=== PATIENT | female | born 1995 | race African-American/Black ===

== ENCOUNTER 2016-06-05 09:20 | Inpatient (IN) | payer MEDICAID, OTHER ==
[~2016-06-05] VITALS: Ht 152.4 cm; Wt 75.1 kg
[2016-06-05 09:22] VITALS: BP 126/70; PULSE 113; RESP 16; TEMP 98.2; O2SAT 97
[2016-06-05] MEDS ORDERED: ASPI325T PO (09:42)
--- NOTE | 2016-06-05 09:54 | PD ---
HPI Chief Complaint: Related Problem Time Seen by Provider: 09:51 Travel History International Travel<30 days: No Contact w/Intl Traveler<30days: No Traveled to known affect area: No History of Present Illness HPI 21-year-old female presents to the emergency department for violation of abdominal cramping and vaginal bleeding during . Patient states her last menstrual cycle was April 21, 2016. She had a positive done yesterday at her primary care physician's office. Patient reports vaginal spotting since Wednesday, but states the cramping and worsening vaginal bleeding started last night. She states that she soaked through a pad onto her bed last night. She has not quite soaked through a pad since waking this morning. She states this is her first . She has no chronic medical problems and takes no prescribed medications. Patient denies any abnormal vaginal discharge or risk of STDs reporting one sexual partner in 2 years. PFSH Past Medical History Medical History: Denies Significant Hx Tetanus Vaccination: < 5 Years Influenza Vaccination: No ?: LMP: 04/21/16 : 1 Para: 0 Miscarriage: 0 : 0 Past Surgical History Surgical History: No Previous Surgery Social History Alcohol Use: Yes (SOCIALLY - NOT FOR PAST FEW WEEKS) Tobacco Use: No Substance Use: No Allergies-Medications (Allergen,Severity, Reaction): Coded Allergies: No Known Allergies (Unverified , 06/05/16) Reported Meds & Prescriptions Reported Meds & Active Scripts Active Reported Aspirin 325 Mg Tab 325 Mg PO DAILY PRN Review of Systems Except as stated in HPI: all other systems reviewed are Neg Physical Exam Narrative GENERAL: Well-developed well-nourished female patient, afebrile. SKIN: Warm and dry. HEAD: Normocephalic. Atraumatic. EYES: No scleral icterus. No injection or drainage. NECK: Supple, trachea midline. No JVD or lymphadenopathy. CARDIOVASCULAR: Regular rate and rhythm without murmurs, gallops, or rubs. RESPIRATORY: Breath sounds equal bilaterally. No accessory muscle use. Lungs sounds clear to auscultation. GASTROINTESTINAL: Abdomen soft and nondistended. Patient has diffuse tenderness to palpation. MUSCULOSKELETAL: No cyanosis, or edema. BACK: Nontender without obvious deformity. No CVA tenderness. GENITOURINARY: Normal external genitalia without lesions or erythema. Vaginal vault has blood clots and blood with products of conception noted in the vaginal vault. Cervical os slightly open with blood noted coming from the cervical os. No cervical motion tenderness. Uterus nontender and nonenlarged. Bilateral adnexa nontender without masses. Pelvic exam was done with DORIS Ortiz, at bedside. Data Data Last Documented VS Vital Signs Date Time Temp Pulse Resp B/P Pulse Ox O2 Delivery O2 Flow Rate FiO2 06/05/16 12:15 110 16 127/67 99 Room Air 06/05/16 09:22 98.2 Orders Beta Hcg (Quant/Titer) (06/05/16 09:50) Complete Blood Count With Diff (06/05/16 09:50) Basic Metabolic Panel (Bmp) (06/05/16 09:50) Complete Rh (06/05/16 09:50) Urinalysis - C+S If Indicated (06/05/16 09:50) Ed Urine Pregnancytest Poc (06/05/16 09:50) Acetaminophen (Tylenol) (06/05/16 10:00) Sodium Chlor 0.9% 1000 Ml Inj (Ns 1000 M (06/05/16 10:00) Ed Poc Ultrasound (06/05/16 10:18) Urine Culture (06/05/16 10:15) Gc And Chlamydia Pcr (06/05/16 11:09) Wet Prep Profile (06/05/16 11:09) Blood Culture (06/05/16 11:11) Lactic Acid Sepsis Protocol (06/05/16 11:11) Pathology Req For Addl Service (06/05/16 12:00) Morphine Inj (Morphine Inj) (06/05/16 12:15) Ondansetron Inj (Zofran Inj) (06/05/16 12:15) Us Pelvis (Ques Pr/Ect)W Trans (06/05/16 ) Gentamicin Inj (Gentamicin Inj) (06/05/16 13:00) Clindamycin Inj (Cleocin Inj) (06/05/16 13:00) (Hub Use Only)Inp Phy Cons/Ref (06/05/16 ) Admit Order (Ed Use Only) (06/05/16 13:37) Labs Laboratory Tests Test 06/05/16 06/05/16 06/05/16 10:15 11:22 12:15 White Blood Count 34.0 TH/MM3 Red Blood Count 4.26 MIL/MM3 Hemoglobin 10.6 GM/DL Hematocrit 33.8 % Mean Corpuscular Volume 79.3 FL Mean Corpuscular Hemoglobin 24.8 PG Mean Corpuscular Hemoglobin 31.3 % Concent Red Cell Distribution Width 16.4 % Platelet Count 420 TH/MM3 Mean Platelet Volume 7.8 FL Neutrophils (%) (Auto) 94.8 % Lymphocytes (%) (Auto) 3.1 % Monocytes (%) (Auto) 1.9 % Eosinophils (%) (Auto) 0.0 % Basophils (%) (Auto) 0.2 % Neutrophils # (Auto) 32.2 TH/MM3 Lymphocytes # (Auto) 1.1 TH/MM3 Monocytes # (Auto) 0.6 TH/MM3 Eosinophils # (Auto) 0.0 TH/MM3 Basophils # (Auto) 0.1 TH/MM3 CBC Comment AUTO DIFF Differential Total Cells 100 Counted Neutrophils % (Manual) 94 % Band Neutrophils % 2 % Lymphocytes % 1 % Monocytes % 3 % Neutrophils # (Manual) 32.6 TH/MM3 Differential Comment FINAL DIFF MANUAL Toxic Vacuolation PRESENT Platelet Estimate HIGH Platelet Morphology Comment NORMAL Urine Color RED Urine Turbidity HAZY Urine pH 5.5 Urine Specific [place] 1.027 Urine Protein 100 mg/dL Urine Glucose (UA) NEG mg/dL Urine Ketones 10 mg/dL Urine Occult Blood LARGE Urine Nitrite NEG Urine Bilirubin NEG Urine Urobilinogen 2.0 MG/DL Urine Leukocyte Esterase MOD Urine RBC /hpf Urine WBC 68 /hpf Urine Squamous Epithelial 16 /hpf Cells Urine Bacteria MANY /hpf Urine Mucus MANY /lpf Microscopic Urinalysis Comment CULTURE INDICATED Sodium Level 138 MEQ/L Potassium Level 3.5 MEQ/L Chloride Level 107 MEQ/L Carbon Dioxide Level 21.7 MEQ/L Anion Gap 9 MEQ/L Blood Urea Nitrogen 6 MG/DL Creatinine 0.72 MG/DL Estimat Glomerular Filtration 125 ML/MIN Rate Random Glucose 91 MG/DL Calcium Level 8.9 MG/DL Human Chorionic Gonadotropin, 1166 MIU/ML Quant Blood Type O POSITIVE Rho(D) Type POSITIVE Lactic Acid Level 1.6 mmol/L Clue Cells (Wet Prep) NONE SEEN Vaginal Trichomonas (Wet Prep) NONE SEEN Vaginal Yeast (Wet Prep) NONE SEEN MDM Medical Decision Making Medical Screen Exam Complete: Yes Emergency Medical Condition: Yes Medical Record Reviewed: Yes Interpretation(s) US - CONCLUSION: Endometrial thickening. No evidence of intrauterine or gestational sac and no evidence of ectopic mass. Differential Diagnosis Threatened versus intrauterine versus ectopic Narrative Course 21-year-old female presents to the emergency department for evaluation of abdominal cramping and vaginal bleeding during . UA urine test are ordered and pending. CBC, BMP, beta hCG, complete Rh are ordered and pending. Ultrasound of the pelvis to rule out ectopic is ordered and pending. UA shows large occult blood, moderate leukocyte esterase, 60 WBCs, many bacteria. Urine test is positive. CBC shows leukocytosis of 34.0, he was in 10.6, hematocrit 33.8, neutrophilia 94.8. BMP shows no acute abnormalities. Beta hCG is 1166. Blood type is O+. Blood cultures 2 lactic acid are ordered and pending. Lactic acid is 1.6. Wet prep profile is negative for clue cells, Trichomonas, yeast. 1159 - US tech is in room, completing ordered US. US shows endometrial thickening. No evidence of intrauterine or gestational sac and no evidence of ectopic mass. [phone] - Dr. Naranjo is paged. According to community living instructor, we are unable to talk to her and OB hospitalist should be called. I spoke with Dr. Kenny with OB hospitalist who saw patient. He agrees that patient most likely has peptic and would like the patient to be started on clindamycin and gentamicin. He states that patient possibly go for a D&C after receiving antibiotics for 48 hours. He would like the patient to be admitted to the hospitalist and for him to be consulted. [phone] - [facility] is paged. [phone] - I spoke to Dr. Rodriguez with [facility] who would like patient to be admitted to Dr. Kenny. I called Dr. Kenny back who agreed to accept admission. Sepsis Criteria SIRS Criteria (2 or more): Heart rate over 90, WBC > 66726, < 4000 or > 10% bands Sepsis Criteria (SIRS+source): Infect source susp/known Diagnosis Primary Impression: Spontaneous with sepsis Additional Impression: Urinary tract infection Qualified Code: N30.01 - Acute cystitis with hematuria Admitting Information Admitting Physician Requests: Admit Elisa Gonzalez CHEN Jun 05, 2016 09:54
[2016-06-05] MEDS ORDERED: ACETAMINOPHEN 325 MG TAB PO ONE (10:00)
[2016-06-05] MEDS ORDERED: SODIUM CHLOR 0.9% 1000 ML INJ 1,000 ML IV ONE (10:00)
--- NOTE | 2016-06-05 10:23 | PD ---
Physical Exam Date Seen by Provider: Jun 05, 2016 Narrative Patient presents with related problems Data Data Last Documented VS Vital Signs Date Time Temp Pulse Resp B/P Pulse Ox O2 Delivery O2 Flow Rate FiO2 06/05/16 10:25 112 16 123/70 99 Room Air 06/05/16 09:22 98.2 Orders Beta Hcg (Quant/Titer) (06/05/16 09:50) Complete Blood Count With Diff (06/05/16 09:50) Basic Metabolic Panel (Bmp) (06/05/16 09:50) Complete Rh (06/05/16 09:50) Us Pelvis (Ques Preg/Ectopic) (06/05/16 ) Urinalysis - C+S If Indicated (06/05/16 09:50) Ed Urine Pregnancytest Poc (06/05/16 09:50) Acetaminophen (Tylenol) (06/05/16 10:00) Sodium Chlor 0.9% 1000 Ml Inj (Ns 1000 M (06/05/16 10:00) Ed Poc Ultrasound (06/05/16 10:18) Urine Culture (06/05/16 10:15) Labs Laboratory Tests Test 06/05/16 10:15 White Blood Count 34.0 TH/MM3 Red Blood Count 4.26 MIL/MM3 Hemoglobin 10.6 GM/DL Hematocrit 33.8 % Mean Corpuscular Volume 79.3 FL Mean Corpuscular Hemoglobin 24.8 PG Mean Corpuscular Hemoglobin 31.3 % Concent Red Cell Distribution Width 16.4 % Platelet Count 420 TH/MM3 Mean Platelet Volume 7.8 FL Neutrophils (%) (Auto) 94.8 % Lymphocytes (%) (Auto) 3.1 % Monocytes (%) (Auto) 1.9 % Eosinophils (%) (Auto) 0.0 % Basophils (%) (Auto) 0.2 % Neutrophils # (Auto) 32.2 TH/MM3 Lymphocytes # (Auto) 1.1 TH/MM3 Monocytes # (Auto) 0.6 TH/MM3 Eosinophils # (Auto) 0.0 TH/MM3 Basophils # (Auto) 0.1 TH/MM3 CBC Comment AUTO DIFF Urine Color RED Urine Turbidity HAZY Urine pH 5.5 Urine Specific [place] 1.027 Urine Protein 100 mg/dL Urine Glucose (UA) NEG mg/dL Urine Ketones 10 mg/dL Urine Occult Blood LARGE Urine Nitrite NEG Urine Bilirubin NEG Urine Urobilinogen 2.0 MG/DL Urine Leukocyte Esterase MOD Urine RBC /hpf Urine WBC 68 /hpf Urine Squamous Epithelial 16 /hpf Cells Urine Bacteria MANY /hpf Urine Mucus MANY /lpf Microscopic Urinalysis Comment CULTURE INDICATED Blood Type O POSITIVE Rho(D) Type POSITIVE MDM Supervised Visit with JEFF: Yes Narrative Course I, Dr. Borden, have reviewed the advance practice practitioner's documentation and am in agreement, met with the patient face to face, made the diagnosis, and the medical decision making was done by me. *My assessment and Findings: I did a quick look ultrasound but was not able to see any signs of a . Rosario Borden MD Jun 05, 2016 10:22
[2016-06-05 10:25] VITALS: BP 123/70; PULSE 112; RESP 16; O2SAT 99
[2016-06-05 10:43] LABS: AUTOMATED NEUTROPHIL # 32.2 TH/MM3 (1.8-7.7); BASOPHIL # 0.1 TH/MM3 (0-0.2); BASOPHIL % 0.2 % (0.0-2.0); HEMATOCRIT 33.8 % (35.0-46.0); LYMPH % 3.1 % (9.0-44.0); LYMPHOCYTE # 1.1 TH/MM3 (1.0-4.8); MEAN CELL VOLUME 79.3 FL (80.0-100.0); MEAN CORPUSCULAR HEMOGLOBIN 24.8 PG (27.0-34.0); MEAN CORPUSCULAR HGB CONC 31.3 % (32.0-36.0); MONO % 1.9 % (0.0-8.0); NEUT % 94.8 % (16.0-70.0); PLATELET COUNT 420 TH/MM3 (150-450); RED BLOOD COUNT 4.26 MIL/MM3 (4.00-5.30); RED CELL DISTRIBUTION WIDTH 16.4 % (11.6-17.2)
[2016-06-05 10:44] LABS: HEMO FLAGS AUTO DIFF
[2016-06-05 10:51] LABS: BACTERIA, URINE MANY /hpf; BLOOD, URINE LARGE (NEG); COMMENT (UR) CULTURE INDICATED; CULTURE IF INDICATED CULTURE INDICATED; GLUCOSE,URINE NEG (NEG); KETONE, URINE 10 mg/dL (NEG); MUCUS URINE MANY /lpf (OCC); NITRITE,URINE NEG (NEG); PH, URINE 5.5 (5.0-8.5); SQUAMOUS EPITHELIAL CELL URINE 16 /hpf (0-5); URINE COLOR RED (YELLW/STRAW)
[2016-06-05 11:05] LABS: BICARBONATE 21.7 MEQ/L (21.0-32.0); POTASSIUM 3.5 MEQ/L (3.5-5.1)
[2016-06-05 11:33] LABS: BANDS 2 % (0-6); NEUTROPHIL # MANUAL DIFF 32.6 TH/MM3 (1.8-7.7); PLATELET MORPHOLOGY NORMAL (NORMAL); POLYS (SEG NEUTROPHILS) 94 % (16-70); SCAN/DIFF FINAL DIFF MANUAL; WBC DIFF SAMPLE 100
[2016-06-05 11:34] LABS: PLATELET ESTIMATE SMEAR HIGH (NORMAL); TOXIC VACUOLATION PRESENT (NONE SEEN)
[2016-06-05] MEDS: MORPHINE SULFATE 4 MG/ML INJ IV PUSH PRN ×2 (12:13→15:07)
[2016-06-05 12:15] VITALS: BP 127/67; PULSE 110; RESP 16; O2SAT 99
[2016-06-05] MEDS ORDERED: ONDANSETRON HCL 4 MG/2 ML VIAL IV PUSH ONE (12:15)
--- NOTE | 2016-06-05 12:31 | RADRPT ---
EXAM DATE/TIME: 06/05/2016 11:54 [place] COMPARISON: No previous studies available for comparison. INDICATIONS : Pelvic pain and vaginal bleeding. LAB(S): Beta-hC MEDICAL HISTORY : . SURGICAL HISTORY : None. ENCOUNTER: Initial ACUITY: 1 day PAIN SCORE: 10/10 LOCATION: Bilateral pelvis MEASUREMENTS: LEFT OVARY: 2.6 x 1.8 x 2.1 cm UTERUS: 9.1 x 6.3 x 5.1 cm ENDOMETRIAL STRIPE: 13 mm RIGHT OVARY: 3.3 x 3.1 x 2.0 cm cm LEFT OVARY: not visualized FINDINGS: Uterus is overall normal size and configuration with mild thickened endometrium without evidence of g estational sac. Left ovary not visualized right ovary suggesting a 1.5 cm collapsed cyst. CONCLUSION: Endometrial thickening. No evidence of intrauterine or gestational sac and no evidence of e ctopic mass. Matthieu Escobar MD on June 05, 2016 at 12:28 Board Certified Radiologist. This report was verified electronically.
[2016-06-05] MEDS ORDERED: SODIUM CHLORIDE 0.9% IV ONE (13:00)
[2016-06-05] MEDS ORDERED: GENTAMICIN IV ONE (13:00)
[2016-06-05] MEDS ORDERED: CLINDAMYCIN INJ 600 MG in SODIUM CHLORIDE 0.9% INJ 100 ML IV ONE (13:00)
[2016-06-05 14:50] LABS: CHLAMYDIA PCR DETECTED (NOT DETECT); NEISSERIA PCR DETECTED (NOT DETECT)
[2016-06-05 15:00] VITALS: BP 129/55; PULSE 115; RESP 18; O2SAT 100
[2016-06-05] MEDS ORDERED: SODIUM CHLORIDE 0.9% FLUSH 5 ML FLUSH IV FLUSH PRN (15:30)
[2016-06-05] MEDS ORDERED: cefTRIAXone 250 MG VIAL IM ONE (16:00)
[2016-06-05] MEDS ORDERED: AZITHROMYCIN 250 MG TAB PO ONE (16:00)
[2016-06-05] MEDS: ACETAMINOPHEN 325 MG TAB PO PRN ×2 (17:30→22:10)
--- NOTE | 2016-06-05 17:54 | HHI.HP ---
HPI Chief Complaint Vaginal bleeding, crampy abdominal pain, fever Date Seen: Jun 05, 2016 Time Seen: 16:30 Travel History International Travel<30 Days: No Contact w/Intl Traveler<30Days: No Known Affected Area: No History of Present Illness HPI 21-year-old at 6 weeks of gestation, last menstrual period 04/21/16, patient presented to the emergency room complaining of vaginal bleeding and crampy abdominal pain associated with nausea patient reported episodes of fever and chills with MAXIMUM TEMPERATURE of 103. She denies vomiting. Upon evaluation in the emergency room patient was noted to have a positive test with serum HCG level of 1166. She was noted to have some vaginal bleeding 5 patient denies dizziness, lightheadedness and loss of consciousness. She is hemodynamically stable. Pelvic ultrasound shows uterus is overall normal in size and configuration with mild thickened endometrium without evidence of gestational sac. Left ovary was not visualized. Right ovary has a 1.5 cm collapsed cyst. Right ovary measures 3.3 x 3.1 x 2.0 cm, endometrial stripe is 1.3 cm, left ovary is 2.6 x 1.8 x 2.1 cm, uterus measures 9.1 x 6.3 x 5.1 cm. On examination the patient is afebrile, she is alert awake oriented to time place and person. A blood work shows white cell count of 34, platelet level of 420, neutrophils 79% and bands 2%, hemoglobin is 10.6, hematocrit 33.8. Para: 0 : 1 Last Menstrual Period: Apr 21, 2016 Miscarriage: 0 : 0 History Past Medical History Narrative Medical Denies Obstetric History Obstetric History Primigravida Past Surgical History Narrative Surgical [place] tooth extraction Family History Narrative Family History Grams mother has hypertension Social History Alcohol Use: No Tobacco Use: No Substance Abuse: No Allergies-Medications (Allergen,Severity, Reaction): Coded Allergies: No Known Allergies (Unverified , 06/05/16) Home Meds Reported Medications Aspirin 325 Mg [id number] Mg PO DAILY PRN (HEADACHE) #30 TAB Ref 0 06/05/16 Review of Systems Except as stated in HPI: all other systems reviewed are Neg General / Constitutional: Fever Gastrointestinal: Nausea, Abdominal Pain Genitourinary: Vaginal Bleeding Physical Exam Narrative GENERAL: Well-nourished, well-developed patient. SKIN: Warm and dry. HEAD: Normocephalic and atraumatic. EYES: No scleral icterus. No injection or drainage. ENT: No nasal drainage noted. Mucous membranes pink. Airway patent. NECK: Supple, trachea midline. No JVD. CARDIOVASCULAR: Regular rate and rhythm without murmurs, gallops, or rubs. RESPIRATORY: Breath sounds equal bilaterally. No accessory muscle use. BREASTS: Bilateral exam showed no masses , no retractions, no nipple discharge. ABDOMEN/GI: Abdomen soft, gravid, non-tender, bowel sounds present, no rebound, no guarding Gravid to 6 weeks size GENITOURINARY: External Genitalia: intact and normal in appearance, vagina no lesions there is some dark old blood noted in the vagina and cervix no lesions there is no cervical motion tenderness, uterus of normal size and no masses noted in the Adnexa. BUS glands: Normal EXTREMITIES: No cyanosis or edema. BACK: Nontender without obvious deformity. No CVA tenderness. NEUROLOGICAL: Awake and alert. Motor and sensory grossly within normal limits. Five out of 5 muscle strength in all muscle groups. Normal speech. Data Data Vital Signs Reviewed: Yes Orders Beta Hcg (Quant/Titer) (06/05/16 09:50) Complete Blood Count With Diff (06/05/16 09:50) Basic Metabolic Panel (Bmp) (06/05/16 09:50) Complete Rh (06/05/16 09:50) Urinalysis - C+S If Indicated (06/05/16 09:50) Ed Urine Pregnancytest Poc (06/05/16 09:50) Acetaminophen (Tylenol) (06/05/16 10:00) Sodium Chlor 0.9% 1000 Ml Inj (Ns 1000 M (06/05/16 10:00) Ed Poc Ultrasound (06/05/16 10:18) Urine Culture (06/05/16 10:15) Gc And Chlamydia Pcr (06/05/16 11:09) Wet Prep Profile (06/05/16 11:09) Blood Culture (06/05/16 11:11) Lactic Acid Sepsis Protocol (06/05/16 11:11) Pathology Req For Addl Service (06/05/16 12:00) Morphine Inj (Morphine Inj) (06/05/16 12:15) Ondansetron Inj (Zofran Inj) (06/05/16 12:15) Us Pelvis (Ques Pr/Ect)W Trans (06/05/16 ) Gentamicin Inj (Gentamicin Inj) (06/05/16 13:00) Clindamycin Inj (Cleocin Inj) (06/05/16 13:00) Admit Order (Ed Use Only) (06/05/16 13:37) Admit To Inpatient (06/05/16 ) Code Status (06/05/16 15:19) Vital Signs (Adult) Q4H (06/05/16 15:19) Activity Oob Ad Allyn (06/05/16 15:19) Sodium Chloride 0.9% Flush (Ns Flush) (06/05/16 21:00) Sodium Chloride 0.9% Flush (Ns Flush) (06/05/16 15:30) Oxycodone-Acetamin 5-325 Mg (Percocet (06/05/16 15:30) Inpatient Certification (06/05/16 ) Azithromycin (Zithromax) (06/05/16 16:00) Ceftriaxone Inj (Rocephin Inj) (06/05/16 16:00) Clindamycin Inj (Cleocin Inj) (06/05/16 22:00) Diet Regular Basic (06/05/16 Dinner) Ondansetron Inj (Zofran Inj) (06/05/16 15:45) Acetaminophen (Tylenol) (06/05/16 15:45) Gentamicin Inj (Gentamicin Inj) (06/06/16 13:00) Labs Laboratory Tests Test 06/05/16 06/05/16 06/05/16 10:15 11:22 12:15 White Blood Count 34.0 Red Blood Count 4.26 Hemoglobin 10.6 Hematocrit 33.8 Mean Corpuscular Volume 79.3 Mean Corpuscular Hemoglobin 24.8 Mean Corpuscular Hemoglobin 31.3 Concent Red Cell Distribution Width 16.4 Platelet Count 420 Mean Platelet Volume 7.8 Neutrophils (%) (Auto) 94.8 Lymphocytes (%) (Auto) 3.1 Monocytes (%) (Auto) 1.9 Eosinophils (%) (Auto) 0.0 Basophils (%) (Auto) 0.2 Neutrophils # (Auto) 32.2 Lymphocytes # (Auto) 1.1 Monocytes # (Auto) 0.6 Eosinophils # (Auto) 0.0 Basophils # (Auto) 0.1 CBC Comment AUTO DIFF Differential Total Cells 100 Counted Neutrophils % (Manual) 94 Band Neutrophils % 2 Lymphocytes % 1 Monocytes % 3 Neutrophils # (Manual) 32.6 Differential Comment FINAL DIFF MANUAL Toxic Vacuolation PRESENT Platelet Estimate HIGH Platelet Morphology Comment NORMAL Urine Color RED Urine Turbidity HAZY Urine pH 5.5 Urine Specific [place] 1.027 Urine Protein 100 Urine Glucose (UA) NEG Urine Ketones 10 Urine Occult Blood LARGE Urine Nitrite NEG Urine Bilirubin NEG Urine Urobilinogen 2.0 Urine Leukocyte Esterase MOD Urine RBC Urine WBC 68 Urine Squamous Epithelial 16 Cells Urine Bacteria MANY Urine Mucus MANY Microscopic Urinalysis Comment CULTURE INDICATED Sodium Level 138 Potassium Level 3.5 Chloride Level 107 Carbon Dioxide Level 21.7 Anion Gap 9 Blood Urea Nitrogen 6 Creatinine 0.72 Estimat Glomerular Filtration 125 Rate Random Glucose 91 Calcium Level 8.9 Human Chorionic Gonadotropin, 1166 Quant Blood Type O POSITIVE Rho(D) Type POSITIVE Lactic Acid Level 1.6 Clue Cells (Wet Prep) NONE SEEN Vaginal Trichomonas (Wet Prep) NONE SEEN Vaginal Yeast (Wet Prep) NONE SEEN Chlamydia trachomatis DNA DETECTED (PCR) Neisseria gonorrhoeae DNA DETECTED (PCR) Date/Time Procedure Status Source Growth 06/05/16 11:20 Aerobic Blood Culture Received Blood Peripheral Pending 06/05/16 11:20 Anaerobic Blood Culture Received Blood Peripheral Pending 06/05/16 10:15 Urine Culture Received Urine Random Urine Pending Assessment/Plan Problem List: (1) Spontaneous with sepsis (2) Urinary tract infection (3) Acute urogenital gonorrhea (4) Chlamydia infection Assessment and Plan 21-year-old at 6 weeks of gestation with with probable spontaneous with sepsis, urinary tract infection, gonorrhea infection and chlamydial infection. Patient is hemodynamically stable. 1. Probable spontaneous with sepsis * We will admit patient to [facility] * Start IV antibiotics therapy * Monitor temperature * Send blood culture 2 * May need dilatation and curettage if bleeding persists 2. Urinary tract infection * We'll treat with antibiotics * We'll send urine culture 3. Gonorrhea and infection * Will treat with ceftriaxone 250 mg intramuscular times one dose * STD screening test and prevention strategies discussed with patient 4. Chlamydia infection Will treat with Zithromax 1 g by mouth times one dose STD screening and prevention strategies discussed with patient Discharge Planning Discharge patient to home 1-3 days after treatment Hima Young MD Jun 05, 2016 17:54
[2016-06-05] MEDS: ONDANSETRON HCL 4 MG/2 ML VIAL IV PUSH PRN (19:59)
[2016-06-05 20:00] VITALS: BP 98/50; PULSE 122; RESP 16; TEMP 99.8; O2SAT 98
[2016-06-05] MEDS: oxyCODONE/ACETAMINOPHEN 5 MG/325 MG TAB PO PRN (20:06)
[2016-06-05] MEDS: METHYLERGONOVINE MALEATE 0.2 MG TAB PO SCH (22:11)
[2016-06-05] MEDS: CLINDAMYCIN INJ 900 MG in SODIUM CHLORIDE 0.9% INJ 100 ML IV SCH (22:12)
[2016-06-05] MEDS: SODIUM CHLORIDE 0.9% FLUSH 5 ML FLUSH IV FLUSH SCH (22:19)
[2016-06-06] VITALS: BP 112/88; PULSE 91; RESP 16; TEMP 97.1; O2SAT 100
[2016-06-06] MEDS: METHYLERGONOVINE MALEATE 0.2 MG TAB PO SCH ×4 (03:58→22:04)
[2016-06-06] MEDS: ACETAMINOPHEN 325 MG TAB PO PRN ×2 (03:58→09:15)
[2016-06-06 04:00] VITALS: BP 98/51; PULSE 78; RESP 16; TEMP 97.4; O2SAT 100
[2016-06-06] MEDS: CLINDAMYCIN INJ 900 MG in SODIUM CHLORIDE 0.9% INJ 100 ML IV SCH ×3 (05:22→22:04)
[2016-06-06 08:00] VITALS: BP 115/85; PULSE 86; RESP 16; TEMP 97.4; O2SAT 96
[2016-06-06] MEDS: SODIUM CHLORIDE 0.9% FLUSH 5 ML FLUSH IV FLUSH SCH ×2 (08:43→19:48)
[2016-06-06 09:08] LABS: AUTOMATED NEUTROPHIL # 16.9 TH/MM3 (1.8-7.7); BASOPHIL % 0.2 % (0.0-2.0); EOSINOPHIL # 0.1 TH/MM3 (0-0.4); EOSINOPHIL % 0.7 % (0.0-4.0); HEMO FLAGS DIFF FINAL; LYMPH % 10.6 % (9.0-44.0); LYMPHOCYTE # 2.1 TH/MM3 (1.0-4.8); MEAN CELL VOLUME 78.6 FL (80.0-100.0); MEAN CORPUSCULAR HEMOGLOBIN 25.3 PG (27.0-34.0); MEAN CORPUSCULAR HGB CONC 32.2 % (32.0-36.0); MONO % 4.4 % (0.0-8.0); NEUT % 84.1 % (16.0-70.0); PLATELET COUNT 328 TH/MM3 (150-450); RED BLOOD COUNT 3.44 MIL/MM3 (4.00-5.30); RED CELL DISTRIBUTION WIDTH 16.4 % (11.6-17.2); WHITE BLOOD COUNT 20.1 TH/MM3 (4.0-11.0)
--- NOTE | 2016-06-06 10:10 | HHI.PR ---
Subjective Remarks Patient is doing much better today, reports decreased bleeding. Denies dizziness and lightheadedness. She is ambulating without difficulty, voiding well, tolerating regular diet. Objective Vital signs are stable Vital Signs Date Time Temp Pulse Resp B/P Pulse Ox O2 Delivery O2 Flow Rate FiO2 06/06/16 08:00 97.4 86 16 115/85 96 06/06/16 05:23 19 06/06/16 04:00 97.4 78 16 98/51 100 06/06/16 00:00 97.1 91 16 112/88 100 06/05/16 22:19 20 06/05/16 20:00 99.8 122 16 98/50 98 06/05/16 17:27 18 06/05/16 15:00 115 18 129/55 100 Room Air 06/05/16 12:15 110 16 127/67 99 Room Air 06/05/16 10:25 112 16 123/70 99 Room Air I/O 06/05/16 06/05/16 06/05/16 06/06/16 06/06/16 06/06/16 07:00 15:00 23:00 07:00 15:00 23:00 Intake Total 960 ml 720 ml Balance 960 ml 720 ml Intake Oral 960 ml 720 ml # Voids 1 2 # Sanitary Pads 2 Pads Result Diagram: 06/06/16 0807 06/05/16 1015 Objective Remarks White cells count is trending down, it is 20.1 today compared to 34.0 yesterday. Assessment and Plan Problem List: (1) Spontaneous with sepsis Status: Acute (2) Chlamydia infection Status: Acute (3) Acute urogenital gonorrhea Status: Acute (4) Urinary tract infection Status: Acute Assessment and Plan Continue with current management. Monitor for bleeding, I have informed the patient that if the bleeding continues she may need dilatation and curettage. However patient is hemodynamically stable. We'll give iron supplementation. Continue with antibiotic therapy. Discussed Condition With Plan of care has been discussed with the patient and the patient agrees. Discharge Planning Was we will discharge patient to home in 1-2 days. Problem Qualifiers (1) Urinary tract infection: Qualified Code: N30.01 - Acute cystitis with hematuria Hima Young MD Jun 06, 2016 10:10
[2016-06-06 11:21] LABS: BETA HCG QUANT 618 MIU/ML (0-5)
[2016-06-06 12:00] VITALS: BP 110/74; PULSE 84; RESP 18; TEMP 97.5; O2SAT 94
[2016-06-06] MEDS: SODIUM CHLORIDE 0.9% IV SCH (12:53)
[2016-06-06] MEDS: GENTAMICIN IV SCH (12:53)
[2016-06-06] MEDS: oxyCODONE/ACETAMINOPHEN 5 MG/325 MG TAB PO PRN ×2 (13:01→19:43)
[2016-06-06 16:00] VITALS: BP 114/78; PULSE 82; RESP 16; TEMP 97.6; O2SAT 95
[2016-06-06] MEDS: ONDANSETRON HCL 4 MG/2 ML VIAL IV PUSH PRN (19:48)
[2016-06-06 20:00] VITALS: BP 93/53; PULSE 84; RESP 16; TEMP 99; O2SAT 98
[2016-06-07] VITALS: BP 109/62; PULSE 88; RESP 16; TEMP 97.9; O2SAT 97
[2016-06-07] MEDS: ACETAMINOPHEN 325 MG TAB PO PRN (00:32)
[2016-06-07] MEDS: METHYLERGONOVINE MALEATE 0.2 MG TAB PO SCH ×2 (03:51→10:32)
[2016-06-07 04:02] VITALS: BP 96/56; PULSE 89; RESP 16; TEMP 98.9; O2SAT 99
[2016-06-07] MEDS: CLINDAMYCIN INJ 900 MG in SODIUM CHLORIDE 0.9% INJ 100 ML IV SCH ×2 (06:23→13:52)
[2016-06-07] MEDS: oxyCODONE/ACETAMINOPHEN 5 MG/325 MG TAB PO PRN (06:26)
[2016-06-07 07:49] LABS: AUTOMATED NEUTROPHIL # 12.1 TH/MM3 (1.8-7.7); BASOPHIL % 0.2 % (0.0-2.0); EOSINOPHIL # 0.2 TH/MM3 (0-0.4); EOSINOPHIL % 1.1 % (0.0-4.0); HEMATOCRIT 27.7 % (35.0-46.0); HEMO FLAGS DIFF FINAL; LYMPH % 14.6 % (9.0-44.0); LYMPHOCYTE # 2.3 TH/MM3 (1.0-4.8); MEAN CELL VOLUME 78.8 FL (80.0-100.0); MEAN CORPUSCULAR HEMOGLOBIN 25.1 PG (27.0-34.0); MEAN CORPUSCULAR HGB CONC 31.9 % (32.0-36.0); MONO % 7.8 % (0.0-8.0); NEUT % 76.3 % (16.0-70.0); PLATELET COUNT 366 TH/MM3 (150-450); RED BLOOD COUNT 3.51 MIL/MM3 (4.00-5.30); RED CELL DISTRIBUTION WIDTH 16.8 % (11.6-17.2); WHITE BLOOD COUNT 15.9 TH/MM3 (4.0-11.0)
[2016-06-07 08:00] VITALS: BP 90/60; PULSE 71; RESP 16; TEMP 98; O2SAT 96
--- NOTE | 2016-06-07 08:07 | HHI.PR ---
Subjective Remarks HD # 3 Afeb > 24 hrs on IV Gent '/ Stefani Pt continues to improve , less pain , however she is still bleeding like a period at times passing small clots, she is beginning to eat, ambulate and has nl bowel & bladder fxn Exam - abdomen minimally tender over uterus otherwise nontender Lab - WBC decreased to 15.9 today H/H stable US shows only slightly thickened stripe no significant tissue retention Imp - septic AB resolving Plan to discharge today after next IVATB dose , she is to follow up with her OB doc in [place] , discharge on po doxycycline 100 mg bid Objective Vital Signs Date Time Temp Pulse Resp B/P Pulse Ox O2 Delivery O2 Flow Rate FiO2 06/07/16 04:02 98.9 89 16 96/56 99 06/07/16 00:00 97.9 88 16 109/62 97 06/06/16 20:00 99.0 84 16 93/53 98 06/06/16 16:00 97.6 82 16 114/78 95 06/06/16 12:00 97.5 84 18 110/74 94 I/O 06/06/16 06/06/16 06/06/16 06/07/16 06/07/16 06/07/16 07:00 15:00 23:00 07:00 15:00 23:00 Intake Total 720 ml 360 ml 2233 ml 960 ml Balance 720 ml 360 ml 2233 ml 960 ml Intake Oral 720 ml 360 ml 960 ml 960 ml IV Total 1273 ml # Voids 2 3 3 3 # Sanitary Pads 1 Pads Result Diagram: 06/07/16 0645 06/05/16 1015 Fabricio Blum II, MD Jun 07, 2016 08:07
[2016-06-07] MEDS ORDERED: IBUP-232 PO (08:09)
[2016-06-07] MEDS ORDERED: MINO100 PO (08:10)
--- NOTE | 2016-06-07 08:15 | HHI.DS ---
Admission Date Jun 05, 2016 at 13:39 Admitting Diagnosis spontaneous with sepsis; UTI Diagnosis: Brief History 21-year-old at 6 weeks of gestation, last menstrual period 04/21/16, patient presented to the emergency room complaining of vaginal bleeding and crampy abdominal pain associated with nausea patient reported episodes of fever and chills with MAXIMUM TEMPERATURE of 103. She denies vomiting. Upon evaluation in the emergency room patient was noted to have a positive test with serum HCG level of 1166. She was noted to have some vaginal bleeding 5 patient denies dizziness, lightheadedness and loss of consciousness. She is hemodynamically stable. Pelvic ultrasound shows uterus is overall normal in size and configuration with mild thickened endometrium without evidence of gestational sac. Left ovary was not visualized. Right ovary has a 1.5 cm collapsed cyst. Right ovary measures 3.3 x 3.1 x 2.0 cm, endometrial stripe is 1.3 cm, left ovary is 2.6 x 1.8 x 2.1 cm, uterus measures 9.1 x 6.3 x 5.1 cm. On examination the patient is afebrile, she is alert awake oriented to time place and person. A blood work shows white cell count of 34, platelet level of 420, neutrophils 79% and bands 2%, hemoglobin is 10.6, hematocrit 33.8. Pt Condition on Discharge: Good Discharge Disposition: Discharge Home Discharge Instructions Diet Instructions: As Tolerated, No Restrictions Activities You Can Perform: Pelvic Rest Activities to Avoid: Strenuous Activity New Medications: Ibuprofen (Ibuprofen) 600 Mg Tab 600 MG PO Q6H PRN PAIN SCALE 1 TO 5 #30 Ref 0 TAB Minocycline (Minocycline) 100 Mg Cap 100 MG PO BID Mgmt Bacterial Infection #20 Ref 0 CAP Discontinued Medications: Aspirin (Aspirin) 325 Mg Tab 325 MG PO DAILY PRN HEADACHE #30 Ref 0 TAB Fabricio Blum II, MD Jun 07, 2016 08:15
[2016-06-07 08:18] LABS: BETA HCG QUANT 386 MIU/ML (0-5)
[2016-06-07] MEDS: SODIUM CHLORIDE 0.9% FLUSH 5 ML FLUSH IV FLUSH SCH (08:22)
[2016-06-07] MEDS ORDERED: FERROUS SULFATE 325 MG (65 MG ELEMENTAL IRON) TAB PO SCH (11:00)
[2016-06-07 12:00] VITALS: BP 90/55; PULSE 73; RESP 18; TEMP 97.4; O2SAT 96
[2016-06-07] MEDS: SODIUM CHLORIDE 0.9% IV SCH (13:01)
[2016-06-07] MEDS: GENTAMICIN IV SCH (13:01)
== END 2016-06-07 16:02 | disposition home or self-care (01) | DRG 779 ==
LOC: NEPA 09:20 → NEDA 13:39 → HOCA 17:19
PROVIDERS: ADMIT Obstetrics & Gynecology; ATTEND Obstetrics & Gynecology
DX: O03.87 Sepsis following complete or unspecified spontaneous abortion (principal); O98.211 Gonorrhea complicating pregnancy, first trimester; O98.811 Other maternal infectious and parasitic diseases complicating pregnancy, first trimester; A74.9 Chlamydial infection, unspecified; Z3A.01 Less than 8 weeks gestation of pregnancy; O03.38 Urinary tract infection following incomplete spontaneous abortion
CPT/HCPCS: 76700; 76817; 80048; 81001; 83605; 84702; 84703; 85007; 85025; 85027; 86901; 87040; 87086; 87210; 87491; 87591; 88305; 96361; 96374; 96375; J0696; J1580; J2270; J2405; J7030